=== PATIENT | female | born 1975 ===

== ENCOUNTER 2024-06-13 11:10 | Emergency (ER) | payer SELFPAY | END 2024-06-13 13:07 | LOC: EEVIPCON 11:10 → ERS 11:10 | DX: S40.012A Contusion of left shoulder, initial encounter (principal); F17.290 Nicotine dependence, other tobacco product, uncomplicated; X58.XXXA Exposure to other specified factors, initial encounter; Y93.89 Activity, other specified | CPT/HCPCS: 99283 ==